=== PATIENT | female | born 1965 | race African-American/Black ===

== ENCOUNTER 2022-09-23 12:45 | Emergency (ER) | payer MEDICAID ==
[~2022-09-23] VITALS: Ht 172.7 cm; Wt 100.0 kg
[2022-09-23] MEDS ORDERED: KETOROLAC 60MG/2ML VIAL IM ONE (13:45)
[2022-09-23 13:56] VITALS: BP 127/89
[2022-09-23] MEDS ORDERED: IBUP-2029 MT (14:09)
== END 2022-09-23 14:57 | disposition home or self-care (01) ==
LOC: ER 14:13
DX: M54.2 Cervicalgia (principal); M54.9 Dorsalgia, unspecified
CPT/HCPCS: 72110; 96372; 99283; J1885